=== PATIENT | female | born 1960 | race Caucasian/White ===

== ENCOUNTER → 2016-10-05 | Outpatient (CLI) | payer OTHER ==
--- NOTE | 2016-10-05 08:48 | Diagnostic Imaging Report ---
PROCEDURE: MRI left joint lower extremity without contrast. TECHNIQUE: Multiplanar, multisequence non contrast-enhanced MRI of the left lower extremity was accomplished. INDICATION: Left knee pain. There are tears of the medial meniscus at its posterior greater than anterior horn. Lateral meniscus shows evidence of intrasubstance degeneration but otherwise unremarkable. There is small/ moderate retropatellar knee joint effusion. The anterior and posterior cruciate ligaments intact. The patellar and quadriceps tendons were intact. The medial and lateral collateral ligament complex components crossing the knee joint are intact. There are tricompartmental osteoarthritic changes to the knee. Tibiofemoral disease more severe medial and lateral with marked articular cartilage thinning, marginal osteophytes, articular sclerosis, and subcortical cyst formation in the tibial side of the joint. More moderate arthritic changes involve the lateral tibiofemoral compartment. 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 There is mild lateral tilt and subluxation of the patella. 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 There is mild prepatellar edema. There is no solid or cystic mass within the popliteal fossa. No acute marrow signal abnormality. 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 No demonstrated loose body. No fracture or acute bony pathology. No tendon or ligament rupture. Dictated by: Dictated on workstation # [id number]
== END ==
LOC: RAD 06:50
PROVIDERS: ATTEND Family Medicine
DX: M25.562 Pain in left knee (principal); M17.12 Unilateral primary osteoarthritis, left knee
CPT/HCPCS: 73721